=== PATIENT | female | born 1955 | race Caucasian/White ===

== ENCOUNTER → 2017-02-02 | Outpatient (CLI) | payer OTHER | LOC: MAMO 12:27 | DX: Z12.31 Encounter for screening mammogram for malignant neoplasm of breast (principal); Z78.0 Asymptomatic menopausal state | CPT/HCPCS: G0202 ==

== ENCOUNTER → 2021-11-22 | Outpatient (CLI) | payer MEDICARE ==
[~2021-11-22] MED LIST: ALLERGY RELIEF10 MG PO; PRAVACHOL80 MG PO; SYNTHROID50 MCG PO; TUMERIC PO; VITAMIN D250000 UNIT PO
== END ==
LOC: KOH-I 08:17
DX: R10.9 Unspecified abdominal pain (principal); R14.3 Flatulence
CPT/HCPCS: 74018

== ENCOUNTER → 2022-05-02 | Outpatient (CLI) | payer MEDICARE | LOC: KOH-I 12:36 | DX: M54.9 Dorsalgia, unspecified (principal); M47.816 Spondylosis without myelopathy or radiculopathy, lumbar region | CPT/HCPCS: 72110 ==